=== PATIENT | female | born 1970 | race Caucasian/White ===

== ENCOUNTER 2017-11-26 20:26 | Inpatient (IN) | payer MEDICAID, OTHER ==
[2017-11-26] MEDS: LIDOCAINE/MYLANTA 40 ML BTL PO (21:24)
[2017-11-26] MEDS: FAMOTIDINE 20 MG INJ IV (21:25)
[2017-11-26] MEDS: morphine 4 MG/ML VIAL IV (21:25)
[2017-11-26] MEDS: ONDANSETRON 4 MG INJ IV (21:25)
[2017-11-26] MEDS: SOD CHLORIDE 0.9% 1,000 ML IV (21:26)
[2017-11-26 21:37] LABS: ADD MAN DIFF? NO
[2017-11-26 21:39] LABS: BASOPHIL # 0.1 10^3/ul (0.0-0.1); BASOPHILS % 0.7 % (0.0-2.0); EOSINOPHILS # 0.3 10^3/ul (0.0-0.5); EOSINOPHILS % 2.2 % (0.0-7.0); HEMATOCRIT 39.8 % (37.0-47.0); HEMOGLOBIN 13.6 g/dl (12.0-16.0); LYMPHOCYTES # 2.5 10^3/ul (0.8-2.9); LYMPHOCYTES % 16.7 % (15.0-51.0); MEAN CORPUSCULAR HEMOGLOBIN 30.3 pg (29.0-33.0); MEAN CORPUSCULAR HGB CONC 34.2 g/dl (32.0-37.0); MEAN CORPUSCULAR VOLUME 88.6 fl (82.0-101.0); MEAN PLATELET VOLUME 11.3 fl (7.4-10.4); MONOCYTE # 0.8 10^3/ul (0.3-0.9); MONOCYTES % 5.6 % (0.0-11.0); NEUTROPHILS % 74.4 % (39.0-77.0); PLATELET COUNT 290 10^3/UL (140-415); RED BLOOD COUNT 4.49 10^6/ul (4.20-5.40); RED CELL DISTRIBUTION WIDTH 13.6 % (11.5-14.5)
[2017-11-26 21:39] LABS: WHITE BLOOD COUNT 14.8 10^3/ul (4.8-10.8)
[2017-11-26 21:54] LABS: ADD UMIC YES; UR ASCORBIC ACID 40 mg/dL (NEGATIVE); UR BACTERIA FEW /HPF (NONE SEEN); UR BILIRUBIN (Dip) NEGATIVE (NEGATIVE); UR BLOOD (Dip) NEGATIVE (NEGATIVE); UR CLARITY CLOUDY (CLEAR); UR COLOR YELLOW (YELLOW); UR GLUCOSE (Dip) NEGATIVE (NEGATIVE); UR KETONES (Dip) NEGATIVE (NEGATIVE); UR LEUKOCYTE ESTERASE (Dip) NEGATIVE Leu/ul (NEGATIVE); UR NITRITE (Dip) NEGATIVE (NEGATIVE); UR RBC 8 /HPF (0-5); UR SPECIFIC GRAVITY (Dip) 1.018 (1.003-1.030); UR TOTAL PROTEIN (Dip) NEGATIVE (NEGATIVE); UR UROBILINOGEN (Dip) NEGATIVE (NEGATIVE); UR WBC 0 /HPF (0-5)
[2017-11-26 22:11] LABS: ALANINE AMINOTRANSFERASE 34 IU/L (13-69); ALBUMIN 4.6 g/dl (3.3-4.9); ALBUMIN/GLOBULIN RATIO 1.64; ALKALINE PHOSPHATASE 64 IU/L (42-121); ANION GAP 17 (8-16); ASPARTATE AMINO TRANSFERASE 23 IU/L (15-46); BLOOD UREA NITROGEN 15 mg/dl (7-20); CALCIUM 9.8 mg/dl (8.4-10.2); CARBON DIOXIDE 29 mmol/L (21-31); CHLORIDE 101 mmol/L (97-110); GLUCOSE 112 mg/dl (70-220); LIPASE 134 U/L (23-300); POTASSIUM 3.9 mmol/L (3.5-5.1); SODIUM 143 mmol/L (135-144); TOTAL PROTEIN 7.4 g/dl (6.1-8.1)
[2017-11-27] MEDS: ONDANSETRON 4 MG INJ IV ×2 (01:33→08:43)
[2017-11-27] MEDS: HYDROmorphONE 0.5 MG/0.5 ML SYG IV (01:34)
[2017-11-27] MEDS: LIDOCAINE 2% VISC 15 ML CUP PO (02:02)
[2017-11-27] MEDS ORDERED: NACL 0.9% 3 ML SYG IV (02:30)
[2017-11-27] MEDS: SOD CHLORIDE 0.9% 1,000 ML IV ×3 (03:21→21:29)
[2017-11-27 06:16] LABS: ADD MAN DIFF? NO
[2017-11-27 06:22] LABS: WHITE BLOOD COUNT 11.9 10^3/ul (4.8-10.8)
[2017-11-27 06:22] LABS: BASOPHIL # 0.1 10^3/ul (0.0-0.1); BASOPHILS % 0.7 % (0.0-2.0); EOSINOPHILS # 0.1 10^3/ul (0.0-0.5); EOSINOPHILS % 0.4 % (0.0-7.0); HEMATOCRIT 37.7 % (37.0-47.0); HEMOGLOBIN 12.8 g/dl (12.0-16.0); LYMPHOCYTES # 1.9 10^3/ul (0.8-2.9); LYMPHOCYTES % 15.7 % (15.0-51.0); MEAN CORPUSCULAR HEMOGLOBIN 30.4 pg (29.0-33.0); MEAN CORPUSCULAR VOLUME 89.5 fl (82.0-101.0); MEAN PLATELET VOLUME 11.1 fl (7.4-10.4); MONOCYTE # 0.6 10^3/ul (0.3-0.9); MONOCYTES % 5.1 % (0.0-11.0); NEUTROPHIL # 9.2 10^3/ul (1.6-7.5); NEUTROPHILS % 77.7 % (39.0-77.0); PLATELET COUNT 261 10^3/UL (140-415); RED BLOOD COUNT 4.21 10^6/ul (4.20-5.40); RED CELL DISTRIBUTION WIDTH 13.9 % (11.5-14.5)
[2017-11-27 06:53] LABS: ALANINE AMINOTRANSFERASE 37 IU/L (13-69); ALBUMIN 4.2 g/dl (3.3-4.9); ALBUMIN/GLOBULIN RATIO 1.55; ALKALINE PHOSPHATASE 58 IU/L (42-121); ANION GAP 17 (8-16); ASPARTATE AMINO TRANSFERASE 22 IU/L (15-46); BILIRUBIN,INDIRECT 0.1 mg/dl (0-1.1); BILIRUBIN,TOTAL 0.1 mg/dl (0.2-1.3); BLOOD UREA NITROGEN 13 mg/dl (7-20); CALCIUM 9.5 mg/dl (8.4-10.2); CARBON DIOXIDE 27 mmol/L (21-31); CHLORIDE 106 mmol/L (97-110); CHOL/HDL RATIO 2.8 RATIO; CHOLESTEROL 159 mg/dl (100-200); CREATININE 0.68 mg/dl (0.44-1.00); GLUCOSE 123 mg/dl (70-220); HDL CHOLESTEROL 56 mg/dl (34-88); LDL CHOLESTEROL,CALCULATED 90 mg/dl; MAGNESIUM 1.8 mg/dl (1.7-2.5); POTASSIUM 4.3 mmol/L (3.5-5.1); SODIUM 146 mmol/L (135-144); TOTAL PROTEIN 6.9 g/dl (6.1-8.1); TRIGLYCERIDES 64 mg/dl (0-149)
[2017-11-27 07:50] LABS: HEMOGLOBIN A1C 5.2 % (0-5.9)
[2017-11-27] MEDS: morphine 2 MG INJ IV (08:43)
[2017-11-27 10:03] LABS: INR 0.91; PROTIME 12.3 Sec (11.9-14.9)
[2017-11-27 10:04] LABS: PARTIAL THROMBOPLASTIN TIME 24.6 Sec (25.0-35.0)
[2017-11-27] MEDS: FAMOTIDINE 20 MG INJ IV ×2 (11:00→21:30)
[2017-11-27] MEDS ORDERED: DIATR MEGLU/DIATRIZOATE SODIUM 120 ML BTL (14:33)
[2017-11-27] MEDS ORDERED: BUPIVACAINE 0.25% (MPF) 30 ML INJ (14:38)
[2017-11-27] MEDS ORDERED: LIDOCAINE 1%/EPI 30 ML INJ (14:38)
[2017-11-27] MEDS: ACETAMINOPHEN 1000MG/100ML IV 100 ML IVPB (18:46)
[2017-11-28] MEDS ORDERED: ACETAMINOPHEN 1000MG/100ML IV 100 ML IVPB (01:30)
[2017-11-28 05:16] LABS: ADD MAN DIFF? NO
[2017-11-28 05:24] LABS: BASOPHIL # 0.1 10^3/ul (0.0-0.1); BASOPHILS % 1.3 % (0.0-2.0); EOSINOPHILS # 0.4 10^3/ul (0.0-0.5); EOSINOPHILS % 5.5 % (0.0-7.0); HEMATOCRIT 37.3 % (37.0-47.0); HEMOGLOBIN 12.7 g/dl (12.0-16.0); LYMPHOCYTES % 27.9 % (15.0-51.0); MEAN CORPUSCULAR HEMOGLOBIN 30.8 pg (29.0-33.0); MEAN CORPUSCULAR VOLUME 90.3 fl (82.0-101.0); MEAN PLATELET VOLUME 11.2 fl (7.4-10.4); MONOCYTE # 0.5 10^3/ul (0.3-0.9); MONOCYTES % 7.3 % (0.0-11.0); NEUTROPHIL # 4.1 10^3/ul (1.6-7.5); NEUTROPHILS % 57.7 % (39.0-77.0); PLATELET COUNT 245 10^3/UL (140-415); RED BLOOD COUNT 4.13 10^6/ul (4.20-5.40); RED CELL DISTRIBUTION WIDTH 14.3 % (11.5-14.5)
[2017-11-28 05:24] LABS: WHITE BLOOD COUNT 7.1 10^3/ul (4.8-10.8)
[2017-11-28 05:53] LABS: ALANINE AMINOTRANSFERASE 35 IU/L (13-69); ALBUMIN 3.4 g/dl (3.3-4.9); ALKALINE PHOSPHATASE 52 IU/L (42-121); ANION GAP 14 (8-16); ASPARTATE AMINO TRANSFERASE 21 IU/L (15-46); BILIRUBIN,INDIRECT 0.4 mg/dl (0-1.1); BILIRUBIN,TOTAL 0.4 mg/dl (0.2-1.3); BLOOD UREA NITROGEN 13 mg/dl (7-20); CALCIUM 8.3 mg/dl (8.4-10.2); CARBON DIOXIDE 25 mmol/L (21-31); CHLORIDE 113 mmol/L (97-110); CREATININE 0.79 mg/dl (0.44-1.00); GLUCOSE 93 mg/dl (70-220); POTASSIUM 4.3 mmol/L (3.5-5.1); SODIUM 148 mmol/L (135-144)
[2017-11-28] MEDS: SOD CHLORIDE 0.9% 1,000 ML IV (08:26)
[2017-11-28] MEDS: FAMOTIDINE 20 MG INJ IV (09:00)
== END 2017-11-28 16:50 | disposition home or self-care (01) | DRG 390 ==
LOC: MS1 11-27 02:21 → FTE 20:26
DX: K56.50 Intestinal adhesions [bands], unspecified as to partial versus complete obstruction (principal); K80.20 Calculus of gallbladder without cholecystitis without obstruction; K42.9 Umbilical hernia without obstruction or gangrene; D72.829 Elevated white blood cell count, unspecified; R82.71 Bacteriuria
CPT/HCPCS: 36415; 71045; 74176; 74250; 76705; 80053; 80061; 81001; 81025; 83036; 83690; 83735; 84443; 85025; 85610; 85730; 96361; 96374; 96375; 96376; 99285-25